=== PATIENT | female | born 2000 | race African-American/Black ===

== ENCOUNTER 2024-06-11 09:31 | Emergency (ER) | payer MEDICAID, OTHER ==
[~2024-06-11] VITALS: Ht 167.6 cm; Wt 112.7 kg
--- NOTE | 2024-06-11 10:37 | DVH ---
XY R KNEE 3V XRAY, INDICATION: R knee pain > 4 wks. TECHNICAL DATA: Frontal, oblique and lateral views were obtained of the right knee. COMPARISON: None FINDINGS: No fracture is identified. Medial, lateral and patellofemoral compartment joint spaces are maintained . Alignment is anatomic. Soft tissues are within normal limits. No joint effusion is demonstrated. IMPRESSION: 1. No acute fracture or dislocation of the right knee.
[2024-06-11 10:39] VITALS: BP 119/69; PULSE 89; RESP 18; TEMP 98; O2SAT 97
[2024-06-11] MEDS ORDERED: NAPR-746 PO (11:18)
[2024-06-11] MEDS ORDERED: PRED20TA2 PO (11:18)
--- NOTE | 2024-06-11 11:19 | ED.PDOC ---
Musculoskeletal HPI Comments 24 year old with no pertinent MHx presents with a chief complaint of chronic right knee pain that started two months ago. No trauma no injury. For symptoms started suddenly and has been gradually progressing. Pain is located to the right anterior patella and the pain radiates down the right lower extremity. Symptoms worsened with ambulation and improves at rest. Taking [id number] ibuprofen at [facility]. Patient just moved from [place] and is pending to insurance to establish care with PCP Chief Complaint: Lower Extremity Time Seen by MD: 09:58 Primary Care Provider: NONE Reviewed Notes: Nurses Notes, Medications, Allergies Allergies: Coded Allergies: NO KNOWN ALLERGIES (Unverified , 06/11/24) Information Source: Patient Mode of Arrival: Ambulatory Family History Family History: Reviewed,noncontributory to illness Social History Smoker: Non-Smoker Alcohol: Denies ETOH Use Drugs: Denies Drug Use All Other Systems: Reviewed and Negative (per hpi) Physical Exam General Appearance: No Apparent Distress, Normal HEENT: Normal ENT Inspection, Pharynx Normal, TMs Normal Neck: Full Range of Motion, Non-Tender, Normal, Normal Inspection Respiratory: Chest Non-Tender, Lungs Clear, No Accessory Muscle Use, No Respiratory Distress, Normal Breath Sounds Cardiovascular: No Edema, No JVD, No Murmur, No Gallop, Normal Peripheral Pulses, Regular Rate/Rhythm Breast Exam: Deferred Gastrointestinal: No Organomegaly, Non Tender, No Pulsatile Mass, Normal Bowel Sounds, Soft Genitalia: Deferred Pelvic: Deferred Rectal: Deferred Extremities: No calf tenderness, Normal capillary refill, Normal inspection, Normal range of motion, Non-tender, No pedal edema Musculoskeletal : Apperance: Normal Neurologic: Alert, microsoft dynamics developer II-XII nml as Tested, No Motor Deficits, Normal Affect, Normal Mood, No Sensory Deficits Cerebellar Function: Normal Reflexes: Normal Skin: Dry, Normal Color, Warm Lymphatic: No Adenopathy Was a procedure done? Was a procedure done?: No Images 1 - Gross abnormality on inspection. No redness no swelling. No crepitus with flexion-extension of the knee. Swelling to the right lower extremity. Andrae test negative Differential Diagnosis EXT Differential Diagnosis: Fracture, Sprain, Dislocation X-Ray, Labs, Meds, VS Vital Signs Date Time Temp Pulse Resp B/P (MAP) Pulse Ox O2 Delivery O2 Flow Rate FiO2 06/11/24 10:39 98.0 89 18 119/69 (86) 97 98.0 06/11/24 10:39 89 18 97 Room Air* 0 21 06/11/24 09:49 98.0 89 18 119/69 (86) 97 X-Ray, Labs, Meds, VS Comment 24 year old with no pertinent MHx presents with a chief complaint of chronic right knee pain that started two months ago. After review of systems and physical examination there were no red flags. Wells score for dvt zero X-ray ordered to rule out fracture dislocation. Imaging independently interpreted by myself Patient is stable for discharge at this time. Test results and diagnostic imaging interpreted. All diagnostic findings, discharge care, education and instructions provided Follow-up with PCP in 2 to 3 days. Benefit from MRI Patient verbalized understanding and agreed to treatment plan Vital signs stable, afebrile, no acute distress noted Patient ambulatory with strong steady gait Advised to return precautions for any new or worsening symptoms, return to ER immediately for re-evaluation Patient is aware that the purpose of this visit was for an acute medical emergency requiring emergent stabilization. Chronic conditions, including malignancies have not been ruled out. Patient is instructed to follow up with PCP as directed and discharge instructions for continued care and workup. If unable to arrange follow-up, patient is to return to the emergency department for reassessment. Patient (parent or legal guardian if applicable) was given verbal and written discharge instructions and acknowledges understanding. Time of 1ST Reevaluation: 11:15 Reevaluation 1ST: Improved Patient Education/Counseling: Diagnosis, Treatment Family Education/Counseling: No Family Present Departure 1 Departure Time of Disposition: 11:17 Impression: Primary Impression: Internal derangement of knee Qualified Codes: M23.91 - Unspecified internal derangement of right knee Disposition: 01 HOME / SELF CARE / HOMELESS Condition: Stable e-Prescriptions Naproxen (Naproxen) 500 Mg Tab 500 MG PO BIDPC for 10 Days, #20 TAB 0 Refills Prov: VELMA STARR SENIOR PROGRAM MANAGER 06/11/24 Prednisone (Prednisone) 20 Mg Tab 60 MG PO DAILY for 5 Days, #15 TAB 0 Refills Prov: VELMA STARR SENIOR PROGRAM MANAGER 06/11/24 Discharged With: Self Critical Care Note Critical Care Time?: No Stability Stability form required: No Heart Score Heart Score: Heart Score Response (Comments) Value History N/A 0 EKG N/A 0 Age N/A 0 Risk Factors N/A 0 Troponin N/A 0 Total 0 VELMA STARR NP Jun 11, 2024 11:19
== END 2024-06-11 11:27 | disposition home or self-care (01) ==
LOC: ER 09:31
DX: M23.91 Unspecified internal derangement of right knee (principal)
CPT/HCPCS: 73562